=== PATIENT | female | born 1990 | race Caucasian/White ===

== ENCOUNTER 2023-09-16 07:27 | Emergency (ER) | payer BC, SELFPAY ==
[2023-09-16 07:28] VITALS: BP 104/63
[2023-09-16 07:54] VITALS: BMI 24.9
--- NOTE | 2023-09-16 08:11 | ED.GENMED ---
History of Present Illness
General
Chief Complaint: Musculo-Skeletal Complaint
Time Seen by Provider: 09/16/23 07:38
History of Present Illness
History of Present Illness:
33 yo female presents w/ a L ring finger deformity after being pulled forcefully by her dog while on a leash. Pain is mild. Clear rotational deformity of the L ring finger, no distal paresthesias
Review of Systems
Review of Systems
Allergies reviewed?: Yes
All Other Systems: ROS reviewed and negative except as documented in HPI and ROS
Phy Exam
Physical Exam
Physical Exam:
GEN: Well appearing, NAD, WDWN
HEENT: Oral mucosa moist, no scleral icterus
Cardiac: Regular rate
Lung: No respiratory distress, no tachypnea
MSK: Rotational/angular deformity of the L ring finger w/ scant ecchymosis
Skin: Good color, no pallor or jaundice, no rashes
Neuro: AO x3, moves all extremities freely
Psych: Calm, cooperative
Course
Orders/Labs/Results
Orders:
Orders
09/16/23 07:32
CR Finger(s)/thumb Min 2 Vw Lt Urgent
Comment:
Reason For Exam: injury, pain
Indicate Which Finger:: Ring Finger
Vital Signs
Initial and Last Documented VS:
Initial Vital Signs
Temp Pulse Resp BP Pulse Ox
97.7 F 59 16 104/63 100
09/16/23 07:28 09/16/23 07:28 09/16/23 07:28 09/16/23 07:28 09/16/23 07:28
Last Documented Vital Signs
Temp Pulse Resp BP Pulse Ox
97.7 F 59 16 104/63 100
09/16/23 07:28 09/16/23 07:28 09/16/23 07:28 09/16/23 07:28 09/16/23 07:28
Procedures
Splinting/Sling Placement
Left Fourth Finger:
Pre-splint extermity exam: neurovascular intact
Type of splint: ulnar gutter
Splint material: fiberglass
MDM/Problems Addressed
MDM/Problems Addressed:
L ring finger XR independently interpreted by me shows an oblique fx of the proximal phalanx. Pt placed in ulnar gutter with gentle linear traction for fx reduction. Outpatient hand surgery f/u advised. Discussed importance of elevation and ice
*Critical Care Note
Total Time (30-74mins, 75-104mins- exclusive of procedures): Not Applicable
ED Attending Note
-
Portions of this chart may have been created with voice recognition software.� Occasional wrong word or��sound alike� substitutions may have occurred due to the inherent limitations of voice recognition software.
Discharge Plan
Departure
Patient Disposition: Home (Routine Discharge)
Date of Disposition: 09/16/23
Time of Disposition: 08:11
Patient with high blood pressure during this ER visit?: No
Discharge Problem:
Closed fracture of proximal phalanx of left ring finger
Instructions: Finger Fracture ED
Referrals:
Sancho Tipton MD [Active] -
Interventions
Interventions:
*Risk Screen - Suicide Last Done: 09/16/23 07:56
*General Assessment Last Done: 09/16/23 07:28
*Neglect/Abuse Screening Last Done: 09/16/23 07:56
ED- Fall Risk Assessment Last Done: 09/16/23 07:56
*ED COVID-19 Vaccine History Last Done: 09/16/23 07:28
*Nursing Disposition Last Done: 09/16/23 08:26
ED-Musculoskeletal Assessment Last Done: 09/16/23 07:56
Discharge Date and Time
Print Language: GUINEAN
== END 2023-09-16 08:27 | disposition home or self-care (01) ==
LOC: EMR 07:27
PROVIDERS: EMERGENCY PHYSICIAN Emergency Medicine
DX: S62.615A Displaced fracture of proximal phalanx of left ring finger, initial encounter for closed fracture (principal); X50.0XXA Overexertion from strenuous movement or load, initial encounter
CPT/HCPCS: 99283; 29125; 73140

== ENCOUNTER 2023-09-19 10:18 | Day surgery (SDC) | payer BC, SELFPAY ==
[2023-09-19] VITALS (9 sets, daily range): BP systolic 109–118; BP diastolic 66–80; BMI 25.0
[2023-09-19] MEDS: TYLENOL 1000 MG PO (10:57)
[2023-09-19] MEDS: NORMOSOL-R 1000 IV (11:13)
== END 2023-09-19 14:00 | disposition home or self-care (01) ==
LOC: SDS 10:18
PROVIDERS: ATTENDING PHYSICIAN Orthopaedic Surgery Hand Surgery
DX: S62.615A Displaced fracture of proximal phalanx of left ring finger, initial encounter for closed fracture (principal); X58.XXXA Exposure to other specified factors, initial encounter
CPT/HCPCS: 26727